=== PATIENT | male | born 1980 | race Caucasian/White ===

== ENCOUNTER 2022-04-23 12:27 | Emergency (ER) | payer MEDICAID, SELFPAY ==
--- NOTE | ~2022-04-23 | CT_ITS ---
EXAMINATION: CT ABDOMEN AND PELVIS WITH CONTRAST CLINICAL INFORMATION: Question perirectal abscess, pain COMPARISON: 10/20/2013 TECHNIQUE: Multidetector volumetric images were obtained from the superior aspect of the liver through the pubic symphysis following administration 85 mL of Omnipaque 350 intravenous contrast. Sagittal and coronal reformatted images were obtained on the technologist's workstation. Oral contrast: No This CT examination was performed using dose optimization techniques as appropriate, variously including the following: *Automated exposure control *Adjustment of mA and/or kV according to patient size (this includes techniques or standardized protocols for targeted exams where dose is matched to indication/reason for exam; i.e. extremities or head) *Use of iterative reconstruction technique DLP: 598 mGy-cm FINDINGS: LUNG BASES: The visualized lung bases are unremarkable. LIVER, GALLBLADDER, AND BILIARY TREE: The liver is normal in size, shape, and attenuation. No focal hepatic lesion or biliary ductal dilatation is present. The gallbladder is unremarkable with no evidence of radiopaque gallstones, gallbladder wall thickening, or obvious pericholecystic inflammatory changes. PANCREAS: Unremarkable. SPLEEN: Unremarkable. ADRENAL GLANDS: Unremarkable. KIDNEYS AND URETERS: The kidneys are normal in size, shape, and attenuation. No hydronephrosis, hydroureter, or calculi seen. No perinephric stranding. BLADDER: Bladder is decompressed. GASTROINTESTINAL TRACT: This exam does demonstrate a thick-walled fluid collection associated with the left medial gluteal region of the medial crease.. Measures 3.1 x 1.6 cm consistent with abscess collection. The anterior aspect of this abnormality does I believe communicate with the rectal region. The bowel pattern is otherwise felt to be nonobstructing. There is no free fluid. ABDOMINAL WALL: No significant hernia is appreciated. LYMPH NODES: Some mildly prominent nodes in the pelvic region. Slightly more prominent than 2014. Not felt to be pathologically enlarged. May be reactive. VASCULAR: Unremarkable. PELVIC VISCERA: Unremarkable. OSSEOUS STRUCTURES: Unremarkable. CT/CT abdomen pelvis w IV con IMPRESSION: Exam confirms a 1.7 x 3.1 x 1.6 cm fluid collection in the subcutaneous fat of the left buttock in the midline . Fleischner guidelines were followed.
[2022-04-23 12:52] VITALS: BP 136/99; PULSE 64; RESP 18; TEMP 36.4; O2SAT 96; BMI 30.7
--- NOTE | 2022-04-23 15:05 | ED_ITS ---
HPI - Skin/Abscess/Foreign Bdy General Chief complaint: Skin/Abscess/Foreign Body Stated complaint: Cyst Left Buttock Area Time Seen by Provider: 04/23/22 14:10 Source: patient Mode of arrival: ambulatory Limitations: no limitations History of Present Illness HPI narrative: 41-year-old male with no significant past medical history presents to the emergency department with complaints of a lump on his left upper/inner/buttock area that has been present for a couple of months. He states that he did ?popped and drained? about a month ago, however; the lump returned and has been getting bigger. He states he has been having difficulty sitting due to pain. He denies any trouble moving his bowels, constipation, diarrhea. He denies any fever, chills. MD complaint: abscess/boil Onset (ago): day(s) Location: buttocks Severity: mild Severity scale (1-10): 5 Quality: aching and constant Pain Consistency: constant Relieving factors: none Exacerbating factors: other (sitting) Context: none Associated symptoms: denies other symptoms Treatments prior to arrival: none Related Data Previous Rx's Medication Instructions Recorded cephalexin 500 mg capsule 500 mg PO QID 7 days #28 caps 04/23/22 doxycycline hyclate 100 mg capsule 100 mg PO BID 7 days #14 caps 04/23/22 Allergies Allergy/AdvReac Type Severity Reaction Status Date / Time No Known Allergies Allergy Unverified 02/02/20 15:11 Review of Systems Review of Systems: Yes all other systems are reviewed and are negative Constitutional: Constitutional: Reports no additional constitutional complaints, Denies chills, Denies fever(s), Denies headache(s) and Denies weight loss Eyes: Eyes: Reports no additional eye complaints and Denies change in vision ENT: Reports system reviewed and no additional complaints, except as documented and Denies headache(s) Cardiovascular: Cardiovascular: Reports no additional cardiovascular complaints, Denies chest pain and Denies dyspnea Respiratory: Respiratory: Reports no additional respiratory complaints, Denies cough and Denies dyspnea Gastrointestinal: Gastrointestinal: Reports no additional gastrointestinal complaints, Denies hematochezia, Denies change in stool character, Denies constipation, Denies diarrhea, Denies nausea and Denies vomiting Genitourinary: Genitourinary: Reports no additional male genitourinary complaints and Denies difficulty urinating Musculoskeletal: Musculoskeletal: Reports no additional musculoskeletal complaints, Denies myalgias, Denies numbness and Denies tingling Integumentary/Breasts: Skin/Breast: Reports system reviewed and no additional complaints, except as docu, Denies rash and Reports other (abscess left buttock) Neurologic: Reports system reviewed and no additional complaints, except as documented, Denies headache(s), Denies numbness and Denies tingling PMFSH Past Medical History Attestation statement: The following information was validated with the patient. Source: old records reviewed and obtained from family Medical History (Updated 04/23/22 @ 16:07 by Shekhar Sue MD) Sacrococcygeal pilonidal cyst Social History Social History Advance Directives: No Physical Exam Vital Signs: Vital Signs: Last Vital Signs Temp 97.6 F 04/23/22 12:52 Pulse 64 04/23/22 12:52 Resp 18 04/23/22 12:52 BP 136/99 H 04/23/22 12:52 Pulse Ox 96 04/23/22 12:52 O2 Del Method 04/23/22 12:52 BMI result Body Mass Index 30.7 Const: General: cooperative, alert and awake Nutritional Appearance: well nourished Orientation/consciousness: patient oriented x3 Limitations: no limitations HEENT: Head: Yes normal to inspection and Yes atraumatic Ears: hearing grossly normal bilaterally and external ears normal General nose exam: Normal external nose present and Normal nares present Face and sinus: Yes normal facial exam and Yes face symmetric Mouth: Normal oral and palatal mucosa present Eyes: General: appearance normal, both eyes and all related structures Vi sual Vargas: normal visual vargas by confrontation Alignment and Position: alignment normal Periorbital: periorbital findings normal Eyelids: Yes eyelids normal Conjunctivae: conjunctivae normal Sclerae: sclerae normal Corneas: corneas normal Pupils: Equal, round and reactive pupils present EOM: EOMs intact bilaterally Neck: Neck: Yes normal visual inspection and Yes full ROM Chest: Chest palpation & inspection: normal inspection of the chest Resp: Effort & Inspection: normal respiratory effort and not labored Auscultation: clear to auscultation bilaterally, no crackles, no rhonchi and no wheezes Cardio: Rate: regular rate Rhythm: regular rhythm GI: Inspection: Yes normal to inspection Auscultation: normal bowel sounds Rectal Exam - Male: Yes visual inspection normal, Yes normal sphincter tone and Yes tenderness Back/Spine/Pelvis: Cervical Spine: cervical ROM normal Thoracic/Lumbar Spine: thoraco-lumbar ROM normal Skin: Rashes: no rashes Neuro: General: patient oriented x3 Cranial nerves: Yes Equal, round and reactive pupils present Cognition (Neuro): normal cognition Gait exam (Neuro): Normal gait present Motor exam (neuro): 5/5 motor strength present throughout Extrem: General: Yes normal to inspection, Yes full ROM and Yes capillary refill normal Course Course Course Narrative: 1500: Pilonidal cyst present at left cleft with question of perirectal involvement based on rectal exam. Dr Sue contacted for consult. CT abd/pelvis for further diagnositics. Labs ordered. 1600: Dr Sue in to assess pt. Plan to discharge pt on antibiotics and follow up outpatient. Pt verbally aggressive to staff. 1610: Pt in CT scan plan to discharge pt after CT scan at pt's request. EXAMINATION: CT ABDOMEN AND PELVIS WITH CONTRAST? CLINICAL INFORMATION: Question perirectal abscess, pain? COMPARISON: 10/20/2013? TECHNIQUE: Multidetector volumetric images were obtained from the superior aspect of the liver through the pubic symphysis following administration 85 mL of Omnipaque 350 intravenous contrast. Sagittal and coronal reformatted images were obtained on the technologist's workstation.? Oral contrast: No This CT examination was performed using dose optimization techniques as appropriate, variously including the following: *Automated exposure control *Adjustment of mA and/or kV according to patient size (this includes techniques or standardized protocols for targeted exams where dose is matched to indication/reason for exam; i.e. extremities or head) *Use of iterative reconstruction technique DLP: 598 mGy-cm FINDINGS: LUNG BASES: The visualized lung bases are unremarkable.? LIVER, GALLBLADDER, AND BILIARY TREE: The liver is normal in size, shape, and attenuation. No focal hepatic lesion or biliary ductal dilatation is present. The gallbladder is unremarkable with no evidence of radiopaque gallstones, gallbladder wall thickening, or obvious pericholecystic inflammatory changes.? PANCREAS: Unremarkable.? SPLEEN: Unremarkable.? ADRENAL GLANDS: Unremarkable.? KIDNEYS AND URETERS: The kidneys are normal in size, shape, and attenuation. No hydronephrosis, hydroureter, or calculi seen. No perinephric stranding. ? BLADDER: Bladder is decompressed.? GASTROINTESTINAL TRACT: This exam does demonstrate a thick-walled fluid collection associated with the left medial gluteal region of the medial crease.. Measures 3.1 x 1.6 cm consistent with abscess collection. The anterior aspect of this abnormality does I believe communicate with the rectal region. The bowel pattern is otherwise felt to be nonobstructing. There is no free fluid. ABDOMINAL WALL: No significant hernia is appreciated.? LYMPH NODES: Some mildly prominent nodes in the pelvic region. Slightly more prominent than 2014. Not felt to be pathologically enlarged. May be reactive. VASCULAR: Unremarkable. PELVIC VISCERA: Unremarkable.? OSSEOUS STRUCTURES: Unremarkable.? CT/CT abdomen pelvis w IV con IMPRESSION: Exam confirms a 1.7 x 3.1 x 1.6 cm fluid collection in the subcutaneous fat of the left buttock in the midline . ? Fleischner guidelines were followed. Dictated By: Deyvi Estrada MD Signed By: <Electronically signed by Deyvi Estrada MD in [place]> 04/23/22 1720 DD/ 1623 TD/TT:? Heating Engineer: GT Medications Administered Discontinued Medications Generic Name Dose Route Start Last Admin Trade Name Freq PRN Reason Stop Dose Admin Iohexol 100 ml 04/23/22 16:20 04/23/22 16:21 Iohexol 350 Mg/Ml 100 Ml Infus..Btl IV 04/23/22 16:21 85 ml ONCE ONE Administration Medical Decision Making Medical Decision Making [facility] Narrative: 41-year-old male with no significant past medical history presents to the emergency department with complaints of a lump on his left upper/inner/buttock area that has been present for a couple of months. Pilonidal cyst noted on left in her amira cleft palpated toward anus. Rectal exam with noted tenderness and pain. Sphincter tone mildly decreased on exam. Dr. Sue from surgery consulted regarding possible perirectal involvement with plan to discharge pt with antibiotics and outpatient follow up as incising and draining now could potentially lead to delayed healing. Lab work unremarkable. CT scan abdomen/pelvis pending read. Labs unremarkable. Physical exam, HPI, and plan discussed with patient with no unanswered questions at this time. Pt educated on sitz baths to allow for further drainage of cyst. Educated to return to the emergency department for fever, chills, constipation, increasing in size of cyst. Recommended follow-up with her primary care provider and Dr. Sue for follow-up. Pt removed IV line and left without RN being able to discharge him with instructions. CT scan results back at 1720 and consistent with a '3.1 x 1.6 cm consistent with abscess collection with the anterior aspect of this abnormality does I believe communicate with the rectal region' per radiologist read. 1730: Attempted to reach pt at phone number in chart ([phone]) with number not in service per recording. No additional phone number noted in med record. Discharge Plan Discharge Clinical Impression: Pilonidal abscess Patient Disposition: Home, Self-Care Instructions: Pilonidal Cyst (ED), Abscess (ED), Sitz Bath (DC) Additional Instructions: Two antibiotics were written for you for treatment of infection. Please take as prescribed. Please add soak in the tub 1 to 2 times a day to help fluid removal from the cyst. Please return to the emergency department for fever, chills, constipation, increasing in size of cyst. Recommended follow-up with her primary care provider and Dr. Sue for follow-up. Prescriptions: New cephalexin 500 mg capsule 500 mg PO QID 7 Days Qty: 28 0RF doxycycline hyclate 100 mg capsule 100 mg PO BID 7 Days Qty: 14 0RF Referrals: [facility] [Provider Group] [facility] [Provider [facility]] [facility] [Provider Group] Shekhar Sue MD [Physician] - Stand Alone Forms: Work/School Release Interventions: ED Discharge Assessment Last Done: 04/23/22 16:34 Discharge Date/Time: 04/23/22 16:35 Print Language: Sami
[2022-04-23 15:22] LABS: Basophils Percent Auto 0.3 % (0-2); Eosinophils Absolute Auto 0.1 X10*3/uL (0.0-0.4); Eosinophils Percent Auto 1.3 % (0-4); Hemoglobin 13.2 g/dl (14.0-18.0); Imm Gran Abs Auto 0.02 X10*3/uL (0.00-0.03); Imm Gran Pct Auto 0.3 % (0.0-0.4); Lymphocytes Absolute Auto 2.5 X10*3/uL (1.2-4.9); Lymphocytes Percent Auto 32.6 % (20-40); MANUAL DIFF FLAG SCAN; Mean Corpuscular HGB Conc 33.8 g/dl (31.0-36.0); Mean Corpuscular Hemoglobin 29.5 pg (27.0-33.0); Mean Corpuscular Volume 87.2 fL (80.0-98.0); Mean Platelet Volume 10.5 fL (9.4-12.4); Monocytes Absolute Auto 0.5 X10*3/uL (0.1-1.2); Monocytes Percent Auto 6.5 % (2-11); Neutrophils Absolute Auto 4.5 x10*3/uL (2.0-8.3); Platelet Count 265 X10*3/uL (160-400); Red Blood Count 4.47 X10*6/uL (4.60-5.80); Red Cell Distribution Width 11.7 % (11.0-16.0); SCAN SMEAR FLAG 1; White Blood Count 7.5 X10*3/uL (4.8-10.8)
[2022-04-23 15:40] LABS: Alanine Aminotransferase 18 U/L (0-40); Albumin Level 4.2 g/dL (3.5-5.0); Alkaline Phosphatase 54 U/L (39-117); Anion Gap 11 (12-20); Aspartate Amino Transferase 19 U/L (5-37); Bilirubin Total 0.7 mg/dL (0.0-1.0); Blood Urea Nitrogen 10 mg/dL (9-16); Calcium 9.4 mg/dL (8.4-10.2); Carbon Dioxide 30 mmol/L (22-29); Chloride 104 mmol/L (96-108); Creatinine Clr Calc Pharmacy 131.4; Estimated Glomerular Filt Rate > 60; Glucose Random 95 mg/dL (60-115); Potassium 4.3 mmol/L (3.3-5.1); Sodium 141 mmol/L (135-145)
[2022-04-23 15:47] LABS: SLIDE REVIEW VERIFIED
--- NOTE | 2022-04-23 16:03 | P.CONGS_ITS ---
History of Present Illness Consult details Consult date: 04/23/22 Narrative: 41-year-old male referred for question of a pilonidal cyst. The patient describes having a ?boil? near the tailbone for over a month. He says that that this has become swollen and off. He had stated that he had popped this on his own a month ago. He says that the has had recurrent swelling and drainage in t he area along with associated pain since that time. He says he is not a diabetic. Of note as well as the patient was not very willing to provide much information. He says that he had been asked multiple times before earlier about why he was here today. He said he had given details of his current problems to the previous provider already. He also stated that he did not know who his primary care physician was. Review of Systems Constitutional: Constitutional: Denies chills and Denies fever(s) Cardiovascular: Cardiovascular: Denies chest pain Respiratory: Respiratory: Denies cough PMFSH Past Medical History Medical History (Updated 04/24/22 @ 00:01 by Pooja Nelson) Sacrococcygeal pilonidal cyst Social History Social History Advance Directives: No Meds Allergies Allergy/AdvReac Type Severity Reaction Status Date / Time No Known Allergies Allergy Unverified 02/02/20 15:11 Physical Exam Vital Signs: Vital Signs: Last Vital Signs Temp 97.6 F 04/23/22 12:52 Pulse 64 04/23/22 12:52 Resp 18 04/23/22 12:52 BP 136/99 H 04/23/22 12:52 Pulse Ox 96 04/23/22 12:52 O2 Del Method 04/23/22 12:52 BMI result Body Mass Index 30.7 Const: General: comfortable and no acute distress Resp: Effort & Inspection: normal respiratory effort Cardio: Rate: regular rate Back/Spine/Pelvis: Other: Induration with spontaneous scanty drainage on the sacrococcygeal her to the left of the midline, no obvious fluctuance, no cellulitis, no obvious pus Results Labs Result diagrams: 04/23/22 15:12 04/23/22 15:12 Labs: Abnormal lab results 04/23/22 04/23/22 Range/Units 15:12 15:12 RBC 4.47 L (4.60-5.80) X10*6/uL Hgb 13.2 L (14.0-18.0) g/dl Hct 39.0 L (42.0-52.0) % Carbon Dioxide 30 H (22-29) mmol/L Anion Gap 11 L (12-20) Short CBC 04/23/22 Range/Units 15:12 WBC 7.5 (4.8-10.8) X10*3/uL Hgb 13.2 L (14.0-18.0) g/dl Hct 39.0 L (42.0-52.0) % Plt Count 265 (160-400) X10*3/uL BMP 04/23/22 15:12 Sodium 141 Potassium 4.3 Chloride 104 Carbon Dioxide 30 H BUN 10 Creatinine 0.89 Calcium 9.4 Liver Function 04/23/22 Range/Units 15:12 Total Bilirubin 0.7 (0.0-1.0) mg/dL AST 19 (5-37) U/L ALT 18 (0-40) U/L Alkaline Phosphatase 54 (39-117) U/L Albumin 4.2 (3.5-5.0) g/dL All other labs normal. Assessment and Plan (1) Sacrococcygeal pilonidal cyst: Status: Acute He has had this area of induration for over a month with scanty drainage. It appears that he has a pilonidal cyst that is spontaneously draining. This appears to be inflamed as well. I told him that it would be best to settle down inflammatory changes with antibiotics. I would then on scheduling him for a formal excision because of this persistent inflammatory process. I reviewed with him the technique of this procedure and explained to him that this will be done in the operating room eventually. I told him that it is best for him to be on a course of oral antibiotics prior to doing surgery as the risk of poor wound healing is higher with acutely inflamed surrounding tissue. He did not seem to agree with the plan however. Unfortunately, he remains a little with belligerent and expressed some foul language as well as inappropriate gestures with his fingers. I did emphasize that him that I will need to see him in the office after antibiotic treatment so we can operate defin itive treatment for this cyst. I also explained to him that this may be a fistulous disease as well. He should also apply warm compresses to the area to help with the acute inflammatory process. I have discussed the above with the ED staff. Procedures Date of Service Date of Service: 04/23/22
[2022-04-23] MEDS: iohexoL 350 MG/ML 100 ML INFUS..BTL IV (16:21)
== END 2022-04-23 16:35 | disposition home or self-care (01) ==
PROVIDERS: Nurse Practitioner Family; Emergency Provider Emergency Medicine Emergency Medical Services
DX: L05.91 Pilonidal cyst without abscess (principal); R10.9 Unspecified abdominal pain; Z79.899 Other long term (current) drug therapy
CPT/HCPCS: 36415; 74177; 80053; 85025; 99283; 99284; Q9967